=== PATIENT | female | born 1950 | race Caucasian/White ===

== ENCOUNTER 2018-06-08 09:57 | Emergency (ER) | payer OTHER ==
[2018-06-08] MEDS ORDERED: BISACODYL 10 MG RECTAL SUPP ONE (11:01)
[2018-06-08] MEDS ORDERED: FLEET ENEMA ADULT PR ONE ×2 (11:47→12:30)
--- NOTE | 2018-06-08 13:04 | ER ---
Nurse's Notes [facility] Name: Kaitlynn Mosley Age: 67 yrs Sex: Female : 1950 Arrival Date: 06/08/2018 Time: 10:01 Bed 7 Private MD: Diagnosis: Constipation;rectal mass Presentation: 06/08 10:05 Presenting complaint: Patient states: constipation x 4 days. No relief with OTC meds. sv Transition of care: patient was not received from another setting of care. Onset of symptoms was June 04, 2018. Care prior to arrival: None. 10:05 Method Of Arrival: Ambulatory sv 10:05 Acuity: PRIYA 4 sv 13:16 Risk Assessment: Do you want to hurt yourself or someone else? Patient reports no bp desire to harm self or others. Initial Sepsis Screen: Does the patient meet any 2 criteria? No. Patient's initial sepsis screen is negative. Does the patient have a suspected source of infection? No. Patient's initial sepsis screen is negative. Triage Assessment: 10:10 General: Appears distressed, uncomfortable, obese, Behavior is cooperative, appropriate bp for age, anxious. Pain: Complains of pain in abdomen. GI: Abdomen is obese, Bowel sounds diminished in abdomen diffusely Abdomen is tender to palpation X 4 quads. Historical: - Allergies: 10:06 No Known Allergies; sv - PMHx: 10:06 COPD; Hypertension; sv - PSHx: 10:06 Hysterectomy; Appendectomy; sv - Immunization history:: Flu vaccine is up to date. - Social history:: Smoking status: Patient/guardian denies using tobacco. - Ebola Screening: : No symptoms or risks identified at this time. Screenin:11 Abuse screen: Denies threats or abuse. Denies injuries from another. Nutritional bp screening: No deficits noted. Tuberculosis screening: No symptoms or risk factors identified. Fall Risk None identified. Assessment: 10:10 General: Appears distressed, uncomfortable, obese, Behavior is cooperative, appropriate bp for age, anxious. Pain: Complains of pain in abdomen. Neuro: Level of Consciousness is awake, alert, obeys commands, Oriented to person, place, time, situation, Appropriate for age. Cardiovascular: No deficits noted. Respiratory: Airway is patent Respiratory effort is even, unlabored, Respiratory pattern is regular, symmetrical. GI: Reports constipation. : No signs and/or symptoms were reported regarding the genitourinary system. EENT: No deficits noted. Derm: No deficits noted. Musculoskeletal: Circulation, motion, and sensation intact. Range of motion: intact in all extremities. 12:12 Reassessment: NO RELIEF OF S/S DESPITE MX ATTEMPTS IN RESTROOM BY MD BUTCH NOTIFIED. bp Vital Signs: 10:06 BP 163 / 85; Pulse 77; Resp 22; Temp 96.9; Pulse Ox 96% ; Height 5 ft. 8 in. (172.72 sv cm); Pain 10/10; 13:00 BP 157 / 79; Pulse 75; Resp 18; Pulse Ox 96% ; bp ED Course: 10:01 Patient arrived in ED. mr 10:05 Abdi Cameron, KAYE is Primary Nurse. bp 10:05 Triage completed. sv 10:06 Alexi Blanco MD is Attending Physician. gs 10:06 Arm band placed on. sv 10:11 Patient has correct armband on for positive identification. Bed in low position. Call bp light in reach. Side rails up X2. Adult w/ patient. 13:02 Maximus Hernandez MD is Referral Physician. gs 13:15 No provider procedures requiring assistance completed. Patient did not have IV access bp during this emergency room visit. Administered Medications: 10:50 Drug: Dulcolax Suppository 10 mg Route: SC; bp 12:05 Follow up: Response: No change in condition bp 13:14 Follow up: Response: No adverse reaction bp 12:04 Drug: Fleet Enema 133 ml Route: SC; bp 12:05 Follow up: Response: No change in condition bp 13:13 Follow up: Response: No adverse reaction bp Outcome: 13:03 Discharge ordered by . gs 13:16 Discharged to home ambulatory, with family. bp 13:16 Condition: stable 13:16 Discharge instructions given to patient, Instructed on discharge instructions, follow up and referral plans. medication usage, Demonstrated understanding of instructions, follow-up care, medications, Prescriptions given X 2. 13:17 Patient left the ED. bp Signatures: Dasia Franks RN RN sv Bee Solis mr Alexi Blanco MD MD Abdi Cameron RN RN bp
--- NOTE | 2018-06-08 13:04 | EDPHYS ---
Physician Documentation [facility] Name: Kaitlynn Mosley Age: 67 yrs Sex: Female : 1950 Arrival Date: 06/08/2018 Time: 10:01 Bed 7 Private MD: ED Physician Alexi Blanco HPI: 06/08 12:47 This 67 yrs old Female presents to ER via Ambulatory with complaints of gs Constipation. 12:47 Onset: The symptoms/episode began/occurred 1 week(s) ago. Associated signs and gs symptoms: Pertinent negatives: blood in stools. The symptoms are described as crampy. Modifying factors: The symptoms are alleviated by nothing. Severity of pain: At its worst the pain was moderate in the emergency department the pain is unchanged. Historical: - Allergies: : No Known Allergies; sv - PMHx: 10:06 COPD; Hypertension; sv - PSHx: 10:06 Hysterectomy; Appendectomy; sv - Immunization history:: Flu vaccine is up to date. - Social history:: Smoking status: Patient/guardian denies using tobacco. - Ebola Screening: : No symptoms or risks identified at this time. ROS: 12:47 All other systems are negative. gs Exam: 12:47 Head/Face: Normocephalic, atraumatic. Eyes: Pupils equal round and reactive to light, gs extra-ocular motions intact. Lids and lashes normal. Conjunctiva and sclera are non-icteric and not injected. Cornea within normal limits. Periorbital areas with no swelling, redness, or edema. ENT: Nares patent. No nasal discharge, no septal abnormalities noted. Tympanic membranes are normal and external auditory canals are clear. Oropharynx with no redness, swelling, or masses, exudates, or evidence of obstruction, uvula midline. Mucous membranes moist. Neck: Trachea midline, no thyromegaly or masses palpated, and no cervical lymphadenopathy. Supple, full range of motion without nuchal rigidity, or vertebral point tenderness. No Meningismus. Chest/axilla: Normal chest wall appearance and motion. Nontender with no deformity. No lesions are appreciated. Cardiovascular: Regular rate and rhythm with a normal S1 and S2. No gallops, murmurs, or rubs. Normal PMI, no JVD. No pulse deficits. Respiratory: Lungs have equal breath sounds bilaterally, clear to auscultation and percussion. No rales, rhonchi or wheezes noted. No increased work of breathing, no retractions or nasal flaring. Back: No spinal tenderness. No costovertebral tenderness. Full range of motion. Skin: Warm, dry with normal turgor. Normal color with no rashes, no lesions, and no evidence of cellulitis. MS/ Extremity: Pulses equal, no cyanosis. Neurovascular intact. Full, normal range of motion. Neuro: Awake and alert, GCS 15, oriented to person, place, time, and situation. Cranial nerves II-XII grossly intact. Motor strength 5/5 in all extremities. Sensory grossly intact. Cerebellar exam normal. Normal gait. 12:47 Constitutional: The patient appears alert, awake. 12:47 Abdomen/GI: Palpation: abdomen is soft and non-tender, in all quadrants, Rectal exam: fecal impaction, that is moderate, feel mass tip of finger will , give enema dulcolax. Vital Signs: 10:06 BP 163 / 85; Pulse 77; Resp 22; Temp 96.9; Pulse Ox 96% ; Height 5 ft. 8 in. (172.72 sv cm); Pain 10/10; 13:00 BP 157 / 79; Pulse 75; Resp 18; Pulse Ox 96% ; bp MDM: 10:17 Patient medically screened. gs 12:47 Data reviewed: vital signs, nurses notes. ED course: reexamined after pt had bm still gs feel mass retracts up and down with valsalva concern for sigmoid mass. Administered Medications: 10:50 Drug: Dulcolax Suppository 10 mg Route: WI; bp 12:05 Follow up: Response: No change in condition bp 13:14 Follow up: Response: No adverse reaction bp 12:04 Drug: Fleet Enema 133 ml Route: WI; bp 12:05 Follow up: Response: No change in condition bp 13:13 Follow up: Response: No adverse reaction bp Disposition: 06/08/18 13:03 Discharged to Home. Impression: Constipation, rectal mass. - Condition is Stable. - Discharge Instructions: Constipation, Adult, Constipation, Adult, [id number], Colon Mass, Adult. - Prescriptions for Dulcolax 10 mg Rectal Suppository - insert 1 suppository by RECTAL route every 6 hours As needed; 10 suppository. Miralax 17 gram/dose Oral - take 1 packet by ORAL route once daily dilute powder in 8 ounces of water or juice; 1 bottle. - Medication Reconciliation Form, Thank You Letter, Antibiotic Education, Prescription Opioid Use form. - Follow up: Maximus Hernandez MD; When: 2 - 3 days; Reason: Re-evaluation by your physician. Signatures: Dasia Franks RN RN Alexi Blanco MD MD Abdi Cameron RN RN bp Corrections: (The following items were deleted from the chart) 13:17 13:03 06/08/2018 13:03 Discharged to Home. Impression: Constipation; rectal mass. bp Condition is Stable. Forms are Medication Reconciliation Form, Thank You Letter, Antibiotic Education, Prescription Opioid Use. Follow up: Maximus Hernandez; When: 2 - 3 days; Reason: Re-evaluation by your physician. gs
== END 2018-06-08 13:17 | disposition home or self-care (01) ==
LOC: ER 09:57
DX: K62.9 Disease of anus and rectum, unspecified (principal)
CPT/HCPCS: 99283

== ENCOUNTER 2018-06-09 14:39 | Observation (INO) | payer OTHER ==
--- NOTE | 2018-06-09 15:50 | RAD REPORT ---
EXAM DESCRIPTION: CT - Stone Protocol - 06/09/2018 3:29 pm CLINICAL HISTORY: Abdominal pain COMPARISON: CT imaging September 2015 TECHNIQUE: Axial 5 mm thick images were obtained without oral or IV contrast. The [id number] span s the entirety of the system partially obscuring uppermost abdomen and lung bases. All CT scans are performed using dose optimization technique as appropriate and may include automated exposure control or mA/KV adjustment according to patient size. FINDINGS: No hydronephrosis is present and no obstructing ureteral calculi. No suspicious renal mass es. Isodense masses and pyelonephritis are not excluded on a stone protocol CT scan. No urinary bladd er suspicious finding. No uterine or ovarian abnormality. No right adrenal abnormality. A 3.6 centimeter rounded left adrenal mass is present with a less than 2 Hounsfield unit attenuation value. 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 Imaged portions of the liver, spleen and pancreas show no suspicious findings on non-contrast imaging . Midline left lobe lobulated cyst or low-density mass is present minimally increased in size from 20 16. This is not regarded with suspicion. Small cystic lesion near the falciform ligament without hager ge from 2016. No gastric dilatation or wall thickening. No small bowel abnormality. The patient has a mild to moder ate amount of stool in the distal rectum. Otherwise there is little stool in the colon. Sigmoid diver ticulosis is minimal. No acute GI process identifiable. No hernia, mass or bulky lymphadenopathy noted. No free air, free fluid or inflammatory stranding. Lower lumbar disc and bony degenerative changes are present. This is most notable at L5-S1. Old traum a changes are noted to the right hemipelvis near the hip joint. IMPRESSION: Mild to moderate stool volume in the distal rectum with overall stool volume in the colo n minimal. No acute GI process identifiable. No acute or WEBMETHOD[employer] ARCHITECT process. Isodense masses and pyelonephritis are not excluded on stone protocol pacheco hnique.
[2018-06-09] MEDS ORDERED: BISACODYL 10 MG RECTAL SUPP ONE ×2 (17:21→17:51)
[2018-06-09] MEDS ORDERED: LACTULOSE 20 GM/30 ML UCUP ONE (17:22)
[2018-06-09] MEDS ORDERED: NA CHLORIDE 0.9% 1,000 ML ONE (17:22)
[2018-06-09 17:54] LABS: Absolute Lymphocytes (CBC) 2.6 K/uL (0.7-4.9); Absolute Monocytes 1.6 K/uL (0.1-1.3); Absolute Neutrophil 11.8 K/uL (1.8-8.0); Basophils % 0.5 % (0-1.3); Eosinophils % 1.4 % (0-4.4); Hematocrit 47.6 % (36.0-45.0); MCH 27.7 pg (27.0-35.0); MCV 85.7 fL (80-100); MPV 10.1 fL (7.6-11.3); Monocytes % 9.9 % (3.3-12.3); RBC Red Blood Cell Count 5.56 M/uL (3.86-4.86)
--- NOTE | 2018-06-09 17:55 | ER ---
Nurse's Notes [facility] Name: Kaitlynn Mosley Age: 67 yrs Sex: Female : 1950 Arrival Date: 06/09/2018 Time: 14:41 Bed 7 Private MD: Diagnosis: Constipation;Abdominal tenderness;Obesity, unspecified Presentation: 06/09 15:41 Presenting complaint: Patient states: " I was seen here yesterday and they said I had a ph blockage, I went to Dr Hernandez today and he sent me back over here for an enema." Pt c/o pain in rectum, nausea and headache. Transition of care: patient was not received from another setting of care. Onset of symptoms was June 09, 2018. Risk Assessment: Do you want to hurt yourself or someone else? Patient reports no desire to harm self or others. Care prior to arrival: None. 15:41 Method Of Arrival: Wheelchair ph 15:41 Acuity: PRIYA 3 ph 19:16 Initial Sepsis Screen: Does the patient meet any 2 criteria? No. Patient's initial ea sepsis screen is negative. Does the patient have a suspected source of infection? No. Patient's initial sepsis screen is negative. Triage Assessment: 18:50 Pain: Complains of pain in suprapubic area. iw Historical: - Allergies: 15:45 No Known Allergies; ph - PMHx: 15:45 COPD; Hypertension; ph - PSHx: 15:45 Hysterectomy; Appendectomy; Tonsillectomy; ph - Immunization history:: Adult Immunizations up to date. - Social history:: Smoking status: Patient/guardian denies using tobacco. - Family history:: not pertinent. - Ebola Screening: : No symptoms or risks identified at this time. Screenin:03 Abuse screen: Denies threats or abuse. Denies injuries from another. Nutritional iw screening: No deficits noted. Tuberculosis screening: No symptoms or risk factors identified. Fall Risk IV access (20 points). Assessment: 19:02 Reassessment: pt sitting on bedside commode, attempting to have BM, unsuccessful, pt iw c/o nausea, pt medicated with zofran and fentanyl, IV antibiotics infusing. 19:13 General: Appears uncomfortable, Behavior is calm, cooperative, appropriate for age. ea Neuro: Level of Consciousness is awake, alert, obeys commands, Oriented to person, place, time, situation. Cardiovascular: Patient's skin is warm and dry. Respiratory: Airway is patent Respiratory effort is even, unlabored, Respiratory pattern is regular, symmetrical. GI: Abdomen is distended, Bowel sounds present X 4 quads. Abd is soft and non tender X 4 quads. Derm: Skin is pink, warm \\T\\ dry. 20:17 Reassessment: Patient and/or family updated on plan of care and expected duration. Pain ea level reassessed. Patient is alert, oriented x 3, equal unlabored respirations, skin warm/dry/pink. Report called to Heaven RESTREPO on second floor. Vital Signs: 15:44 BP 175 / 104; Pulse 85; Resp 20; Temp 97.8; Pulse Ox 96% on R/A; ph 16:33 BP 162 / 103; Pulse 76; Resp 20; Temp 97.4; Pulse Ox 96% on R/A; ph 19:00 BP 119 / 64; Pulse 87; Resp 18; Pulse Ox 95% on R/A; Pain 8/10; iw 20:29 BP 125 / 73; Pulse 80; Resp 18; Temp 97.6(TE); Pulse Ox 97% on R/A; ea ED Course: 14:41 Patient arrived in ED. as 15:30 CT Stone Protocol In Process Unspecified. EDMS 15:44 Triage completed. ph 15:45 Arm band placed on. ph 16:55 Miko Pradhan MD is Attending Physician. norma 17:09 Natalia Ross, RN is Primary Nurse. iw 17:19 EKG done, by diamond powder technician. reviewed by Miko Pradhan MD. sm3 17:36 Initial lab(s) drawn, by oh, sent to lab. Inserted saline lock: 24 gauge in right iw wrist, using aseptic technique. Blood collected. 17:53 Karena Badillo MD is Hospitalizing Provider. norma 18:07 XRAY Chest (1 view) In Process Unspecified. EDMS 19:15 No provider procedures requiring assistance completed. Patient admitted, IV remains in ea place. 19:16 Patient has correct armband on for positive identification. Bed in low position. Call ea light in reach. Side rails up X 1. Administered Medications: Discontinued: NS 0.9% 1000 ml IV at 1 bolus Per protocol; 1000 mL bolus 17:34 Drug: NS 0.9% 1000 ml Route: IV; Rate: 1 bolus; Site: right wrist; iw 17:52 Drug: Lactulose 30 grams Volume: 45 ml; Route: PO; iw 18:30 Follow up: Response: No adverse reaction iw 17:52 Drug: Dulcolax Suppository 10 mg Route: NJ; iw 19:28 Follow up: Response: No adverse reaction iw 18:59 Drug: Cipro 400 mg Volume: 200 ml; Route: IVPB; Infused Over: 60 mins; Site: right iw wrist; 20:14 Follow up: Response: No adverse reaction; IV Status: Completed infusion ea 18:59 Drug: Flagyl 500 mg Volume: 100 ml; Route: IVPB; Rate: 200 ml/hr; Infused Over: 30 iw mins; Site: right hand; 20:14 Follow up: Response: No adverse reaction; IV Status: Completed infusion ea 19:00 Drug: fentaNYL (PF) 25 mcg Route: IVP; Site: right wrist; iw 19:29 Follow up: Response: No adverse reaction; Pain is decreased iw 19:00 Drug: Zofran 4 mg Route: IVP; Site: right wrist; iw 19:29 Follow up: Response: No adverse reaction iw Outcome: 17:54 Decision to Hospitalize by Provider. norma 19:17 Instructed on the need for admit. gracia 20:18 Admitted to Med/surg accompanied by tech, room 220, with chart, Report called to Heaven fagan RN 20:28 Condition: stable ea 20:30 Patient left the ED. gracia Signatures: Dispatcher [employer] Miko Mcintyre MD MD cha Martinez, Amelia as Williams, Irene, RN RN iw Hall, Patricia, RN RN Heaven Reese RN RN ea Montes, Shakira 3
--- NOTE | 2018-06-09 17:55 | EDPHYS ---
Physician Documentation [facility] Name: Kaitlynn Mosley Age: 67 yrs Sex: Female : 1950 Arrival Date: 06/09/2018 Time: 14:41 Bed 7 Private MD: ED Physician Miko Pradhan HPI: 06/09 17:46 This 67 yrs old Female presents to ER via Wheelchair with complaints of norma Constipation. 17:46 The patient presents with abdominal pain in the lower abdomen, rectal. Onset: The norma symptoms/episode began/occurred 3 day(s) ago. The patient presents to the emergency department with diarrhea, abdominal pain, of the suprapubic area. Historical: - Allergies: 15:45 No Known Allergies; ph - PMHx: 15:45 COPD; Hypertension; ph - PSHx: 15:45 Hysterectomy; Appendectomy; Tonsillectomy; ph - Immunization history:: Adult Immunizations up to date. - Social history:: Smoking status: Patient/guardian denies using tobacco. - Family history:: not pertinent. - Ebola Screening: : No symptoms or risks identified at this time. ROS: 17:46 Constitutional: Negative for fever, chills, and weight loss, Eyes: Negative for injury, norma pain, redness, and discharge, ENT: Negative for injury, pain, and discharge, Neck: Negative for injury, pain, and swelling, Cardiovascular: Negative for chest pain, palpitations, and edema, Respiratory: Negative for shortness of breath, cough, wheezing, and pleuritic chest pain, Back: Negative for injury and pain, : Negative for injury, bleeding, discharge, and swelling, MS/Extremity: Negative for injury and deformity, Skin: Negative for injury, rash, and discoloration, Neuro: Negative for headache, weakness, numbness, tingling, and seizure, Psych: Negative for depression, anxiety, suicide ideation, homicidal ideation, and hallucinations, Allergy/Immunology: Negative for hives, rash, and allergies, Endocrine: Negative for neck swelling, polydipsia, polyuria, polyphagia, and marked weight changes, Hematologic/Lymphatic: Negative for swollen nodes, abnormal bleeding, and unusual bruising. 17:46 Abdomen/GI: Positive for abdominal pain, rectal pain. Exam: 17:46 Constitutional: This is a well developed, well nourished patient who is awake, alert, norma and in no acute distress. Head/Face: Normocephalic, atraumatic. Eyes: Pupils equal round and reactive to light, extra-ocular motions intact. Lids and lashes normal. Conjunctiva and sclera are non-icteric and not injected. Cornea within normal limits. Periorbital areas with no swelling, redness, or edema. ENT: Nares patent. No nasal discharge, no septal abnormalities noted. Tympanic membranes are normal and external auditory canals are clear. Oropharynx with no redness, swelling, or masses, exudates, or evidence of obstruction, uvula midline. Mucous membranes moist. Neck: Trachea midline, no thyromegaly or masses palpated, and no cervical lymphadenopathy. Supple, full range of motion without nuchal rigidity, or vertebral point tenderness. No Meningismus. Chest/axilla: Normal chest wall appearance and motion. Nontender with no deformity. No lesions are appreciated. Cardiovascular: Regular rate and rhythm with a normal S1 and S2. No gallops, murmurs, or rubs. Normal PMI, no JVD. No pulse deficits. Respiratory: Lungs have equal breath sounds bilaterally, clear to auscultation and percussion. No rales, rhonchi or wheezes noted. No increased work of breathing, no retractions or nasal flaring. Back: No spinal tenderness. No costovertebral tenderness. Full range of motion. Female : Normal external genitalia. Skin: Warm, dry with normal turgor. Normal color with no rashes, no lesions, and no evidence of cellulitis. MS/ Extremity: Pulses equal, no cyanosis. Neurovascular intact. Full, normal range of motion. Neuro: Awake and alert, GCS 15, oriented to person, place, time, and situation. Cranial nerves II-XII grossly intact. Motor strength 5/5 in all extremities. Sensory grossly intact. Cerebellar exam normal. Normal gait. Psych: Awake, alert, with orientation to person, place and time. Behavior, mood, and affect are within normal limits. 17:46 Abdomen/GI: Inspection: distension, Bowel sounds: normal, Palpation: mild abdominal tenderness, in the suprapubic area, right lower quadrant and left lower quadrant, Rectal exam: rectal tone normal, Stool: normal, guaiac negative, hemorrhoid(s), are not appreciated, mass, is not appreciated, swelling, is not appreciated, tenderness, that is mild. Vital Signs: 15:44 BP 175 / 104; Pulse 85; Resp 20; Temp 97.8; Pulse Ox 96% on R/A; ph 16:33 BP 162 / 103; Pulse 76; Resp 20; Temp 97.4; Pulse Ox 96% on R/A; ph 19:00 BP 119 / 64; Pulse 87; Resp 18; Pulse Ox 95% on R/A; Pain 8/10; iw 20:29 BP 125 / 73; Pulse 80; Resp 18; Temp 97.6(TE); Pulse Ox 97% on R/A; ea MDM: 16:55 Patient medically screened. [facility] 17:50 Data reviewed: vital signs, nurses notes, lab test result(s), EKG, radiologic studies, [facility] CT scan, plain films. 06/09 17:04 Order name: Basic Metabolic Panel; Complete Time: 19:37 [facility] 06/09 17:04 Order name: CBC with Diff; Complete Time: 19:37 [facility] 06/09 17:04 Order name: LFT's; Complete Time: 19:37 [facility] 06/09 17:04 Order name: Magnesium; Complete Time: 19:37 [facility] 06/09 17:04 Order name: NT PRO-BNP; Complete Time: 19:37 [facility] 06/09 17:04 Order name: PT-INR; Complete Time: 19:37 [facility] 06/09 15:14 Order name: CT Stone Protocol; Complete Time: 16:22 snw 06/09 17:04 Order name: Troponin (emerg Dept Use Only); Complete Time: 19:37 [facility] 06/09 17:04 Order name: XRAY Chest (1 view) [facility] 06/09 17:04 Order name: Lipase; Complete Time: 19:37 [facility] 06/09 17:04 Order name: Urine Culture [facility] 06/09 19:22 Order name: Urine Dipstick--Ancillary (enter results) 06/09 19:34 Order name: Urine Dipstick-Ancillary; Complete Time: 19:37 EDMS 06/09 17:04 Order name: EKG; Complete Time: 17:05 [facility] 06/09 17:04 Order name: Cardiac monitoring; Complete Time: 20:30 [facility] 06/09 17:04 Order name: EKG - Nurse/Tech; Complete Time: 20:30 [facility] 06/09 17:04 Order name: IV Saline Lock; Complete Time: 19:28 [facility] 06/09 17:04 Order name: Labs collected and sent; Complete Time: 19: [facility] 06/09 17:04 Order name: O2 Per Protocol; Complete Time: 19:28 [facility] 06/09 17:04 Order name: O2 Sat Monitoring; Complete Time: 19:29 [facility] 06/09 17:04 Order name: Urine Dipstick-Ancillary (obtain specimen); Complete Time: 19:15 [facility] 06/09 18:00 Order name: CONS Physician Consult EDMS Administered Medications: Discontinued: NS 0.9% 1000 ml IV at 1 bolus Per protocol; 1000 mL bolus 17:34 Drug: NS 0.9% 1000 ml Route: IV; Rate: 1 bolus; Site: right wrist; iw 17:52 Drug: Lactulose 30 grams Volume: 45 ml; Route: PO; iw 18:30 Follow up: Response: No adverse reaction iw 17:52 Drug: Dulcolax Suppository 10 mg Route: OH; iw 19:28 Follow up: Response: No adverse reaction iw 18:59 Drug: Cipro 400 mg Volume: 200 ml; Route: IVPB; Infused Over: 60 mins; Site: right iw wrist; 20:14 Follow up: Response: No adverse reaction; IV Status: Completed infusion ea 18:59 Drug: Flagyl 500 mg Volume: 100 ml; Route: IVPB; Rate: 200 ml/hr; Infused Over: 30 iw mins; Site: right hand; 20:14 Follow up: Response: No adverse reaction; IV Status: Completed infusion ea 19:00 Drug: fentaNYL (PF) 25 mcg Route: IVP; Site: right wrist; iw 19:29 Follow up: Response: No adverse reaction; Pain is decreased iw 19:00 Drug: Zofran 4 mg Route: IVP; Site: right wrist; iw 19:29 Follow up: Response: No adverse reaction Disposition: 06/09/18 17:54 Hospitalization ordered by Karena Badillo for Observation. Preliminary diagnosis are Constipation, Abdominal tenderness, Obesity, unspecified. - Bed requested for Telemetry/MedSurg (observation). - Status is Observation. ea - Condition is Stable. - Problem is new. - Symptoms have improved. UTI on Admission? No Signatures: Dispatcher [employer] EDMS Fe Robles Corey, MD MD cha Therrien, Shelly, HAIRSPRING STAKER-C HAIRSPRING STAKER-Csnw Natalia Ross, RN Magnolia Izaguirre, Heaven Gu RN, ph, RN RN ea Corrections: (The following items were deleted from the chart) 18:56 17:54 Hospitalization Ordered by Karena Badillo MD for Observation. Preliminary diagnosis bd is Constipation; Abdominal tenderness; Obesity, unspecified. Bed requested for Telemetry/MedSurg (observation). Status is Observation. Condition is Stable. Problem is new. Symptoms have improved. UTI on Admission? No. norma 20:30 18:56 06/09/2018 17:54 Hospitalization Ordered by Karena Badillo MD for Observation. gracia Preliminary diagnosis is Constipation; Abdominal tenderness; Obesity, unspecified. Bed requested for Telemetry/MedSurg (observation). Status is Observation. Condition is Stable. Problem is new. Symptoms have improved. UTI on Admission? No. bd
[2018-06-09 18:11] LABS: Protime INR 1.05
[2018-06-09 18:29] LABS: ALT/SGPT 17 U/L (12-78); AST/SGOT 21 U/L (15-37); Albumin 3.8 g/dL (3.4-5.0); Alkaline Phosphatase 76 U/L (45-117); BUN Blood Urea Nitrogen 10 mg/dL (7-18); Bicarbonate 24 mmol/L (21-32); Bilirubin Direct 0.1 mg/dL (0-0.2); Bilirubin Total 0.6 mg/dL (0.2-1.0); Glucose Level 99 mg/dL (74-106); Lipase 130 U/L (73-393); Magnesium 2.5 mg/dL (1.8-2.4); NT PRO-BNP 649 pg/mL (<125); Potassium 3.9 mmol/L (3.5-5.1); Sodium Level 142 mmol/L (136-145); Troponin (Emerg Dept Use Only) < 0.02 ng/mL (0.0-0.045)
[2018-06-09] MEDS ORDERED: FENTANYL CITR 100 MCG/2 ML ONE (18:53)
[2018-06-09] MEDS ORDERED: NA CHLORIDE 0.9% 500 ML ONE (18:53)
[2018-06-09] MEDS ORDERED: ONDANSETRON 4 MG/2 ML VIAL ONE (18:53)
[2018-06-09] MEDS ORDERED: METRONIDAZOLE 500mg IVPB 500 MG/100 ML BAG IV ONE (18:53)
[2018-06-09] MEDS ORDERED: CIPROFLOXACIN 400mg IV 400 MG/200 ML BAG IV ONE (18:53)
[2018-06-09 19:34] LABS: Urine Blood 1+ (NEG); Urine Glucose NEGATIVE (NEG); Urine Protein NEGATIVE (NEG); Urine Specific Gravity 1.025 (1.005-1.030)
--- NOTE | 2018-06-09 20:04 | RAD REPORT ---
EXAM DESCRIPTION: RAD - Chest Single View - 06/09/2018 6:07 pm CLINICAL HISTORY: Cough and congestion COMPARISON: July 2015 chest film, lung base images from August 09 CT abdomen TECHNIQUE: AP portable chest image was obtained 1734 hours . FINDINGS: No acute infiltrate. Stranding in the left base is probably atelectasis. No failure or vol ume overload. Heart and vasculature are normal. No measurable pleural effusion and no pneumothorax. N o acute bony abnormality seen. No acute aortic findings suspected. IMPRESSION: No acute cardiopulmonary process.
[2018-06-09] MEDS ORDERED: BISACODYL E.C. 5 MG TAB PO PRN (21:31)
[2018-06-09] MEDS ORDERED: LACTULOSE 20 GM/30 ML UCUP PO PRN (21:31)
[2018-06-09] MEDS ORDERED: ONDANSETRON 4 MG/2 ML VIAL IV PRN (21:31)
[2018-06-09] MEDS ORDERED: ACETAMINOPHEN 500 MG TAB PO PRN (21:31)
[2018-06-09] MEDS ORDERED: HYDROCODONE/APAP 10/325 TAB PO PRN (21:48)
[2018-06-09] MEDS: RANITIDINE 150 MG TABLET PO SCH (23:00)
[2018-06-09] MEDS ORDERED: METOPROLOL TARTRATE 5 MG/5 ML INJ IV STA (23:03)
[2018-06-10 06:01] LABS: Absolute Lymphocytes (CBC) 2.9 K/uL (0.7-4.9); Absolute Monocytes 1.5 K/uL (0.1-1.3); Basophils % 0.6 % (0-1.3); Eosinophils % 1.9 % (0-4.4); Lymphocytes % 21.2 % (15.3-44.8); MCH 28.1 pg (27.0-35.0); MCV 86.5 fL (80-100); MPV 9.9 fL (7.6-11.3); Monocytes % 11.1 % (3.3-12.3); RBC Red Blood Cell Count 5.09 M/uL (3.86-4.86)
[2018-06-10 06:23] LABS: Albumin 3.4 g/dL (3.4-5.0); Bilirubin Total 0.7 mg/dL (0.2-1.0); Potassium 3.8 mmol/L (3.5-5.1); Protein, Total 6.9 g/dL (6.4-8.2)
[2018-06-10 06:51] LABS: Magnesium 2.3 mg/dL (1.8-2.4); Phosphorus 2.6 mg/dL (2.5-4.9)
--- NOTE | 2018-06-10 07:00 | EKG ---
Test Date: 2018-06-09 Test Time: 17:13:20 Silo Painter: ANTONIO MEASUREMENT RESULTS: Intervals: Rate: 77 OK: 138 QRSD: 88 QT: 400 QTc: 452 [employer]: P: 67 OK: 138 QRS: 64 T: 64 INTERPRETIVE STATEMENTS: Sinus rhythm with premature supraventricular complexes Nonspecific ST abnormality Abnormal ECG Compared to ECG 08/06/2015 06:05:15 Atrial premature complex(es) now present ST (T wave) deviation now present Sinus arrhythmia no longer present Electronically Signed On 06-10-18 06:59:55 CDT by Eleno Bob
[2018-06-10] MEDS ORDERED: PNEUMOCOCCAL VACCINE 0.5 ML IMVAC ONE (08:00)
--- NOTE | 2018-06-10 08:50 | P.HP ---
Certification for Inpatient Patient admitted to: Observation With expected LOS: <2 Midnights Patient will require the following post-hospital care: None Practitioner: I am a practitioner with admitting privileges, knowledge of patient current condition, hospital course, and medical plan of care. Services: Services provided to patient in accordance with Admission requirements found in Title 42 Section 412.3 of the Code of Federal Regulations Patient History Date of Service: 06/09/18 Reason for admission: Constipation and impaction History of Present Illness: Patient is a 67-year-old female who is been suffering from severe abdominal pain for the last few days. She states her last bowel movement was over 5 days ago. She has been having diarrhea. She has felt a large stool will near the rectum. It appears to be very painful. Patient was given a suppository in the emergency room and apparently patient has had a small bowel movement. Patient feels like she will have to go again. Spoke to the nurse regarding disimpaction. As long as patient is agreeable will go ahead and disimpact her this evening as well. Allergies NKDA Allergy (Uncoded 08/07/15 14:12) Unknown Home Medications: Lisinopril [Prinivil*] 10 mg PO BID 08/05/15 Ranitidine [Zantac*] 1 tab PO BID 08/05/15 Acetaminophen [Tylenol Extra Strength] 1 tab PO PRN 06/09/18 - Past Medical/Surgical History Has patient received pneumonia vaccine in the past: No Diabetic: No -: hypertension -: GERD -: hysterectomy -: appendectomy - Family History Father Medical History: Heart disease, Cancer Mother Medical History: Hypertension Brother Medical History: Heart disease - Social History Smoking Status: Former smoker Alcohol use: No CD- Drugs: No Caffeine use: Yes Place of Residence: Home Review of Systems 10-point ROS is otherwise unremarkable Physical Examination - Vital Signs Temperature: 96.9 F Blood Pressure: 144/72 Pulse: 64 Respirations: 18 Pulse Ox (%): 94 - Physical Exam General: Alert, In no apparent distress, Oriented x3 HEENT: Atraumatic, PERRLA, Mucous membr. moist/pink, EOMI, Sclerae nonicteric Neck: Supple, 2+ carotid pulse no bruit, No LAD, Without JVD or thyroid abnormality Respiratory: Clear to auscultation bilaterally, Normal air movement Cardiovascular: Regular rate/rhythm, Normal S1 S2, No murmurs Gastrointestinal: Normal bowel sounds, Soft and benign, No rebound, No guarding , Other, Distended, Tenderness Musculoskeletal: No tenderness Integumentary: No rashes Neurological: Normal gait, Normal speech, Normal strength at 5/5 x4 extr, Normal tone, Sensation intact, Cranial nerves 3-12 intact, Normal affect Lymphatics: No axilla or inguinal lymphadenopathy - Studies Laboratory Data (last 24 hrs) 06/09/18 17:30: PT 12.4, INR 1.05 06/09/18 17:30: WBC 16.3 H, Hgb 15.4 H, Hct 47.6 H, Plt Count 288 06/09/18 17:30: Sodium 142, Potassium 3.9, BUN 10, Creatinine 1.10, Glucose 99, Magnesium 2.5 H, Total Bilirubin 0.6, AST 21, ALT 17, Alkaline Phosphatase 76, Lipase 130 Assessment & Plan - Problems (Diagnosis) (1) Constipation Current Visit: Yes Status: Acute (2) Fecal impaction Current Visit: Yes Status: Acute (3) Abdominal pain Current Visit: Yes Status: Acute (4) Hypertension Current Visit: Yes Status: Acute (5) COPD exacerbation Onset Date: 08/08/15 Current Visit: No Status: Acute (6) Dyspnea Onset Date: 08/08/15 Current Visit: No Status: Acute (7) Tobacco abuse Onset Date: 08/08/15 Current Visit: No Status: Acute - Plan PLAN: 1. Continue with laxative 2. Soap nikki enema x 2 3. GI consult 4. Stool softener 5. Patient will need a bowel regimen going forward 6. BP and BS control 7. GI/DVT prophylaxis Discharge Plan: Home Plan to discharge in: 48 Hours - Advance Directives Does patient have a Living Will: No Does patient have a Durable POA for Healthcare: No - Code Status/Comfort Care Code Status Assessed: Yes Code Status: Full Code Critical Care: No Time Spent Managing PTS Care (In Minutes): 50
[2018-06-10] MEDS: HYDROCORTISONE 2.5% RECT CR PR SCH ×2 (09:03→20:53)
--- NOTE | 2018-06-10 15:31 | RAD REPORT ---
EXAM DESCRIPTION: RAD - Colon-Ba Enema-Therapeutic - 06/10/2018 12:09 pm CLINICAL HISTORY: Abdominal pain/constipation COMPARISON: None FINDINGS: Gastrografin enema was requested. Contrast was administered into the rectum. The sigmoid c olon and descending colon were opacified with contrast. The patient complained of pain and wanted the exam to be ended. The remainder the colon was not opaci fied with contrast. Two fluoroscopic spot images obtained. Fluoroscopy time 0.4 minutes IMPRESSION: Incomplete Gastrografin enema
--- NOTE | 2018-06-10 16:04 | P.PN ---
Subjective Date of Service: 06/10/18 Chief Complaint: Constipation and impaction Patient seen and examined at bedside. No family at bedside. Patient states that she was unable to tolerate the Gastrografin enema this morning due to excessive amount of pain. She does state that she is feeling a little bit better than initially when she came in. Denies any abdominal pain, nausea, vomiting, fevers or chills. She is hungry. Review of Systems As noted above Physical Examination - Vital Signs Temperature: 97.1 F Blood Pressure: 176/82 Pulse: 69 Respirations: 20 Pulse Ox (%): 94 - Physical Exam General: Alert, In no apparent distress HEENT: Atraumatic, PERRLA, EOMI Neck: Supple, JVD not distended Respiratory: Clear to auscultation bilaterally, Normal air movement Cardiovascular: Regular rate/rhythm, Normal S1 S2 Gastrointestinal: Normal bowel sounds, No tenderness Musculoskeletal: No tenderness Integumentary: No rashes Neurological: Normal speech, Normal tone, Normal affect - Studies Laboratory Data (last 24 hrs) 06/09/18 17:30: PT 12.4, INR 1.05 06/09/18 17:30: WBC 16.3 H, Hgb 15.4 H, Hct 47.6 H, Plt Count 288 06/09/18 17:30: Sodium 142, Potassium 3.9, BUN 10, Creatinine 1.10, Glucose 99, Magnesium 2.5 H, Total Bilirubin 0.6, AST 21, ALT 17, Alkaline Phosphatase 76, Lipase 130 Medications List Reviewed: Yes Assessment And Plan - Plan - Constipation: Improving Failed Gastrografin enema this morning, due to pain. Continue laxatives and enemas p.r.n. Clear liquids diet, advance as tolerated GI consulted, recommendations appreciated General surgery consulted. - fecal impaction See Plan above - abdominal pain: Resolved - Hypertension: Continue home medications - COPD exacerbation: Stable. Continue medications - tobacco abuse: Cessation education provided. Patient not interested at this time.
[2018-06-10] MEDS: RANITIDINE 150 MG TABLET PO SCH (20:54)
[2018-06-11 05:33] LABS: Absolute Lymphocytes (CBC) 2.4 K/uL (0.7-4.9); Absolute Monocytes 1.3 K/uL (0.1-1.3); Absolute Neutrophil 7.2 K/uL (1.8-8.0); Basophils % 0.9 % (0-1.3); Eosinophils % 3.1 % (0-4.4); Hematocrit 45.4 % (36.0-45.0); Lymphocytes % 21.4 % (15.3-44.8); MCH 28.1 pg (27.0-35.0); MPV 9.8 fL (7.6-11.3); Monocytes % 11.5 % (3.3-12.3); RBC Red Blood Cell Count 5.28 M/uL (3.86-4.86)
[2018-06-11 06:07] LABS: Albumin 3.5 g/dL (3.4-5.0); Bilirubin Total 0.8 mg/dL (0.2-1.0); Potassium 4.2 mmol/L (3.5-5.1); Protein, Total 6.9 g/dL (6.4-8.2)
[2018-06-11] MEDS: HYDROCORTISONE 2.5% RECT CR PR SCH (08:59)
--- NOTE | 2018-06-11 13:39 | P.DS ---
Admission Date: 06/09/18 Discharge Date: 06/11/18 Disposition: ROUTINE DISCHARGE Discharge Condition: GOOD Reason for Admission: Constipation and impaction Consultations: GI, Dr. hernandez Brief History of Present Illness: Patient is a 67-year-old female who is been suffering from severe abdominal pain for the last few days. She states her last bowel movement was over 5 days ago. She has been having diarrhea. She has felt a large stool will near the rectum. It appears to be very painful. Patient was given a suppository in the emergency room and apparently patient has had a small bowel movement. Patient feels like she will have to go again. Spoke to the nurse regarding disimpaction. As long as patient is agreeable will go ahead and disimpact her this evening as well Hospital Course: She was admitted for constipation, fecal impaction. GI was consulted. She was given laxatives and enemas as needed. In she failed her Gastrografin enema because she was having too much pain. Although patient did start having bowel movements afterwards. Her pain resolved and she was able to tolerate a clear liquid diet, advanced to soft without any concerns or complaints. At the time of discharge, P was tolerating a soft diet without any abdominal pain, nausea or vomiting. She had 3 or 4 normal bowel movements. For her hemorrhoids, she was instructed to use her preparation H cream. She was also given information to follow up with Dr. Camarena outpatient for further evaluation/treatment. She otherwise remained stable throughout the hospitalization She was educated on smoking cessation. Vital Signs/Physical Exam: Temp Pulse Resp BP Pulse Ox 97.8 F 77 20 191/99 H 99 06/11/18 08:00 06/11/18 08:00 06/11/18 08:00 06/11/18 08:00 06/11/18 08:00 General: Alert, In no apparent distress HEENT: Atraumatic, PERRLA, EOMI Neck: Supple, JVD not distended Respiratory: Clear to auscultation bilaterally, Normal air movement Cardiovascular: Regular rate/rhythm, Normal S1 S2 Gastrointestinal: Normal bowel sounds, No tenderness Musculoskeletal: No tenderness Integumentary: No rashes Neurological: Normal speech, Normal tone, Normal affect Laboratory Data at Discharge: WBC 11.4 K/uL (4.3-10.9) H D 06/11/18 04:51 Hgb 14.8 g/dL (12.0-15.0) 06/11/18 04:51 Hct 45.4 % (36.0-45.0) H 06/11/18 04:51 Plt Count 249 K/uL (152-406) 06/11/18 04:51 PT 12.4 SECONDS (9.5-12.5) 06/09/18 17:30 INR 1.05 06/09/18 17:30 Sodium 140 mmol/L (136-145) 06/11/18 04:51 Potassium 4.2 mmol/L (3.5-5.1) 06/11/18 04:51 BUN 13 mg/dL (7-18) 06/11/18 04:51 Creatinine 1.10 mg/dL (0.55-1.3) 06/11/18 04:51 Glucose 110 mg/dL (74-106) H 06/11/18 04:51 Phosphorus 2.6 mg/dL (2.5-4.9) 06/10/18 05:38 Magnesium 2.3 mg/dL (1.8-2.4) 06/10/18 05:38 Total Bilirubin 0.8 mg/dL (0.2-1.0) 06/11/18 04:51 AST 24 U/L (15-37) 06/11/18 04:51 ALT 14 U/L (12-78) 06/11/18 04:51 Alkaline Phosphatase 61 U/L (45-117) 06/11/18 04:51 Lipase 130 U/L (73-393) 06/09/18 17:30 Home Medications: Lisinopril [Prinivil*] 10 mg PO BID 08/05/15 Ranitidine [Zantac*] 1 tab PO BID 08/05/15 Acetaminophen [Tylenol Extra Strength] 1 tab PO PRN 06/09/18 Diet: Liquid/soft Activity: Ad crista Followup: Dane Camarena MD [ACTIVE - CAN ADMIT] - 1-2 Weeks (Call for appointment. Call with any concerns.) Maximus Hernandez MD [ASSOCIATE-ACTIVE - CAN ADMIT] - 1-2 Weeks (Call for appointment.) Time spent managing pt's care (in minutes): 45
--- NOTE | 2018-06-11 14:43 | CON ---
Date of Consultation: 06/10/2018 Brief History Of Present Illness: The patient is a 67-year-old female, who has been having abdominal pain for several days prior to her admission. She says her last bowel was over 5 days ago . She usually has a bowel movement per day. She had been noting decreased oral intake of liquids an d having intermittent diarrhea. She felt a large hard firm stool in her rectum, which she has had on several occasions before and usually she says she is able to digitally remove these. However, on th is particular occasion, she was unable to do so as she felt that the stool was so firm that it kept r olling back into her rectum, and she was unable to disimpact herself. The pain got significantly wor se. She had abdominal pain and as such she came to the emergency room at that time. She was admitte d to the hospital at that time and given enemas and bowel regimen and has had symptomatic improvement since her admission to the hospital, but she continued to have some abdominal pain as of 06/10/2018 and as such I was consulted to see her for this reason. Past Medical History: Significant for hypertension, and GERD. Past Surgical History: Hysterectomy, appendectomy. Allergies: NO KNOWN DRUG ALLERGIES. Home Medications: Include Prinivil, Zantac, and Tylenol. Family History: Heart disease and cancer in her father. Her mother and brother had heart disease. Social History: She has a former smoking history. No alcohol or recreational drug use. Review of Systems: A 10-point review of systems other than HPI, denies. Physical Examination: Vital Signs: At the time of my examination, she has had a BMI of 39.9, blood pressure was 170/73, pu lse is 56, respiratory rate 18, temperature 97.7. General: She is awake, alert, and oriented. Psychiatric: She is appropriately conversive. HEENT: She is normocephalic. Sclerae icteric. Mucous membranes are moist. Oropharynx clear. Neck: Supple. No JVD. Chest: Normal expansion and excursion. Cardiovascular: Regular rhythm. Pulmonary: Clear to auscultation bilaterally. Abdomen: Soft, nontender, nondistended. No rebound. No guarding. No focal peritonitis. No palpab le masses. Extremities: No clubbing, cyanosis, or edema. Skin: Warm and dry. Laboratory Data: Reveals a white blood count of 13.8, hemoglobin is 14.3, hematocrit 44.0, platelet count is 248. Her sodium 141, potassium 3.8, chloride 109, carbon dioxide 24, BUN 10, creatinine 0.9 , glucose is 123, calcium 8.3, phosphorus 2.6, magnesium 2.3, total bilirubin 0.7, AST 19, ALT 13, al kaline phosphatase is 60, lipase is 130 on admission. UA is essentially negative down the line. She has had several imaging studies performed and a barium enema. These included a CT abdomen and pelvi s, which was officially read as mild to moderate stool volume in the distal rectum with overall stool volume in the colon minimal. No acute GI process identified. No acute /CORRECTIONAL OFFICER CAPTAIN process. Isodense ma ss and pyelonephritis are not excluded on stone protocol technique. A chest x-ray was officially santana d as no acute cardiopulmonary process. The patient additionally had a therapeutic barium enema, whic h she was unable to tolerate completely, which showed an incomplete Gastrografin enema. Assessment And Plan: This is a 67-year-old female who came in with stool impaction of the distal rec antonino. 1.IV fluid hydration. 2.The patient has continued to have bowel function now and has resumption of bowel movements, had 4 bowel movements in the last several hours and has symptomatic improvement and no more abdominal pain. No nausea, no vomiting. Is tolerating liquids. As such I find that she has likely passed this dis impacted segment of stool. I recommend continue to advance her diet. Continue hydration with Gatora de and electrolyte solutions and Metamucil and Colace for stool softener as an outpatient. I also re commend she follow up with Dr. Hernandez possibly for repeat colonoscopy and assessment of her GI tract. I have explained risks, benefits, and alternatives of the above stated plan. The patient agrees to proceed as indicated. TOMA/[place] Voice ID: [id number] Report ID: [id number]
== END 2018-06-11 09:45 | disposition home or self-care (01) ==
LOC: ER 14:39 → ERHOLD 17:56 → 2ND 20:24
PROVIDERS: ADMIT Family Medicine; ATTEND Hospitalist
DX: K56.41 Fecal impaction (principal); I10 Essential (primary) hypertension; J44.9 Chronic obstructive pulmonary disease, unspecified; K21.9 Gastro-esophageal reflux disease without esophagitis; Z87.891 Personal history of nicotine dependence
CPT/HCPCS: 36415 ×2; 71045; 74176; 74283; 76377; 80048; 80053 ×2; 80076; 81003; 83690; 83735 ×2; 83880; 84100; 84484; 85025 ×3; 85610; 87086; 87088; 93005; 99285; G0378 ×2; J0744; J2405; J3010; J7030

== ENCOUNTER 2020-09-12 14:13 | Emergency (ER) | payer OTHER ==
[2020-09-12 17:29] LABS: Absolute Lymphocytes (CBC) 3.3 K/uL (0.7-4.9); Basophils % 0.7 % (0-1.3); Hematocrit 44.6 % (36.0-45.0); Lymphocytes % 28.5 % (15.3-44.8); MPV 9.2 fL (7.6-11.3); RBC Red Blood Cell Count 5.18 M/uL (3.86-4.86)
[2020-09-12 17:36] LABS: Protime INR 0.93
[2020-09-12 17:59] LABS: ALT/SGPT 9 U/L (12-78); Albumin 3.9 g/dL (3.4-5.0); Alkaline Phosphatase 76 U/L (45-117); BUN Blood Urea Nitrogen 16 mg/dL (7-18); Bicarbonate 27 mmol/L (21-32); Bilirubin Direct < 0.1 mg/dL (0-0.2); Bilirubin Total 0.3 mg/dL (0.2-1.0); Glucose Level 88 mg/dL (74-106); Protein, Total 7.6 g/dL (6.4-8.2); Sodium Level 143 mmol/L (136-145); Troponin (Emerg Dept Use Only) < 0.02 ng/mL (0.0-0.045)
[2020-09-12 18:00] LABS: NT PRO-BNP 185 pg/mL (<125)
[2020-09-12 18:01] LABS: AST/SGOT 17 U/L (15-37); Magnesium 2.1 mg/dL (1.8-2.4); Potassium 4.2 mmol/L (3.5-5.1)
--- NOTE | 2020-09-12 18:50 | ER ---
Nurse's Notes [facility] Name: Kaitlynn Mosley Age: 69 yrs Sex: Female : 1950 Arrival Date: 09/12/2020 Time: 14:16 Bed 5 Private MD: Diagnosis: Essential (primary) hypertension Presentation: 09/12 14:32 Chief complaint: Patient states: Chest pain for a while now, maybe a few months, comes ca1 and goes. For the past week or 2, has gotten worse, I raise my arms up, my chest hurts. When I lay on my R side it hurts. I feel like at times my heart skips beats, then have palpitations. My BP is also high, has been on the SBP 200, DBP 100. Went to [facility] today and SBP at 219 and they sent me here. I also have COPD and my lungs hurt right now too. Coronavirus screen: Client denies travel out of the [place] in the last 14 days. At this time, the client does not indicate any symptoms associated with coronavirus-19. Ebola Screen: Patient negative for fever greater than or equal to 101.5 degrees Fahrenheit, and additional compatible Ebola Virus Disease symptoms Patient denies exposure to infectious person. Patient denies travel to an Ebola-affected area in the 21 days before illness onset. No symptoms or risks identified at this time. Initial Sepsis Screen: Does the patient meet any 2 criteria? No. Patient's initial sepsis screen is negative. Does the patient have a suspected source of infection? No. Patient's initial sepsis screen is negative. Risk Assessment: Do you want to hurt yourself or someone else? Patient reports no desire to harm self or others. Onset of symptoms was September 12, 2020. 14:32 Method Of Arrival: Ambulatory ca1 14:32 Acuity: PRIYA 2 ca1 Historical: - Allergies: 14:38 No Known Allergies; ca1 - Home Meds: 16:45 Lisinopril Oral [Active]; aa5 16:45 Unknown diuretic [Active]; aa5 - PMHx: 14:38 COPD; Hypertension; ca1 - PSHx: 14:38 Hysterectomy; Appendectomy; Tonsillectomy; ca1 - Immunization history:: Flu vaccine is up to date. - Social history:: Smoking status: Patient/guardian denies using tobacco, the patient reports quitting approximately 5 years ago. - Family history:: not pertinent. Screenin:30 Abuse screen: Denies threats or abuse. Nutritional screening: No deficits noted. aa5 Tuberculosis screening: No symptoms or risk factors identified. Fall Risk None identified. Assessment: 16:30 General: Appears comfortable, Behavior is calm, cooperative. Pain: Complains of pain in aa5 chest Pain does not radiate. Pain currently is 6 out of 10 on a pain scale. Is intermittent. Neuro: Level of Consciousness is awake, alert, obeys commands, Oriented to person, place, time, situation. Cardiovascular: Reports "I start having palpitations when I walk around and I can feel my blood pressure go up but if I am just sitting down my blood pressure is fine and I feel okay". Heart tones S1 S2 present Rhythm is regular. Respiratory: Reports Baseline SOB and cough, hx of COPD Airway is patent Respiratory effort is even, unlabored, Respiratory pattern is regular, symmetrical, Breath sounds are clear bilaterally. GI: Abdomen is round. : No signs and/or symptoms were reported regarding the genitourinary system. EENT: No signs and/or symptoms were reported regarding the EENT system. Derm: Skin is pink, warm \\T\\ dry. Musculoskeletal: Range of motion: intact in all extremities. 17:30 Reassessment: Patient is alert, oriented x 3, equal unlabored respirations, skin aa5 warm/dry/pink. 17:30 General: Appears comfortable. aa5 19:00 Reassessment: Patient is alert, oriented x 3, equal unlabored respirations, skin aa5 warm/dry/pink. Vital Signs: 14:32 BP 203 / 105; Pulse 73; Resp 16 S; Temp 98.1; Pulse Ox 100% on R/A; Weight 90.72 kg ca1 (R); Height 5 ft. 7 in. (170.18 cm) (R); Pain 6/10; 17:09 BP 154 / 90; Pulse 69; Resp 18 S; Pulse Ox 99% on R/A; aa5 17:30 BP 156 / 93; Pulse 71; Resp 16 S; Pulse Ox 97% on R/A; aa5 18:17 BP 138 / 83; Pulse 73; Resp 16 S; Pulse Ox 97% on R/A; aa5 19:00 BP 139 / 82; Pulse 68; Resp 16 S; Pulse Ox 98% on R/A; aa5 14:32 Body Mass Index 31.32 (90.72 kg, 170.18 cm) ca1 ED Course: 14:16 Patient arrived in ED. as 14:32 Arm band placed on right wrist. ca1 14:37 Triage completed. ca1 16:21 Susan Matt, RN is Primary Nurse. aa5 16:32 Pieor Whalen MD is Attending Physician. ma2 17:11 Patient has correct armband on for positive identification. Placed in gown. Bed in low mh5 position. Call light in reach. Side rails up X 1. Warm blanket given. Pillow given. monitor tech on. Pulse ox on. NIBP on. 17:11 EKG done, by ED staff, reviewed by Piero Whalen MD. 5 17:13 Initial lab(s) drawn, by me, sent to lab. Inserted saline lock: 20 gauge in right aa5 antecubital area, using aseptic technique. Blood collected. 18:48 Heri Ramos MD is Referral Physician. ma2 19:10 No provider procedures requiring assistance completed. IV discontinued, intact, rr5 bleeding controlled, No redness/swelling at site. Pressure dressing applied. Patient maintains SpO2 saturation greater than 95% on room air. Administered Medications: No medications were administered Outcome: 18:48 Discharge ordered by . ma2 19:10 Discharged to home ambulatory. rr5 19:10 Condition: stable 19:10 Discharge instructions given to patient, Instructed on discharge instructions, follow up and referral plans. medication usage, Demonstrated understanding of instructions, follow-up care, medications, Prescriptions given X 1. 19:10 Patient left the ED. rr5 Signatures: Barby Barrett Audri, RN RN aa5 Danae Barrett 5 Piero Whalen MD MD ma2 Jaylan Antoine RN RN rr5 Starla Rodriguez RN RN ca1 Corrections: (The following items were deleted from the chart) 14:38 14:32 Acuity: PRIYA 3 ca1 ca1 18:39 16:30 Cardiovascular: Heart tones S1 S2 present Rhythm is regular aa5 aa5 18:39 16:30 Respiratory: Airway is patent Respiratory effort is even, unlabored, Respiratory aa5 pattern is regular, symmetrical, Breath sounds are clear bilaterally. aa5
--- NOTE | 2020-09-12 18:51 | EDPHYS ---
Physician Documentation [facility] Name: Kaitlynn Mosley Age: 69 yrs Sex: Female : 1950 Arrival Date: 09/12/2020 Time: 14:16 Bed 5 Private MD: ED Physician Piero Whalen HPI: 09/12 17:02 This 69 yrs old Female presents to ER via Ambulatory with complaints of Chest ma2 Pain, Palpitations. 17:02 The patient or guardian reports chest pain that is located primarily in the anterior ma2 chest wall. Onset: gradually, 1 week(s) ago. Associated signs and symptoms: Pertinent negatives: cough, dizziness, lower extremity pain, lower extremity swelling, syncope, vomiting. Severity of pain: At its worst the pain was moderate in the emergency department the pain is unchanged. patient was sent here for elevated bp 200/100, she has been having chest pain for 2 months on/off, mostly positional . Historical: - Allergies: 14:38 No Known Allergies; ca1 - Home Meds: 16:45 Lisinopril Oral [Active]; aa5 16:45 Unknown diuretic [Active]; aa5 - PMHx: 14:38 COPD; Hypertension; ca1 - PSHx: 14:38 Hysterectomy; Appendectomy; Tonsillectomy; ca1 - Immunization history:: Flu vaccine is up to date. - Social history:: Smoking status: Patient/guardian denies using tobacco, the patient reports quitting approximately 5 years ago. - Family history:: not pertinent. ROS: 17:02 Constitutional: Negative for fever, chills, and weight loss. ma2 17:02 All other systems are negative. Exam: 17:02 Constitutional: This is a well developed, well nourished patient who is awake, alert, ma2 and in no acute distress. Head/Face: Normocephalic, atraumatic. Eyes: Pupils equal round and reactive to light, extra-ocular motions intact. Lids and lashes normal. Conjunctiva and sclera are non-icteric and not injected. Cornea within normal limits. Periorbital areas with no swelling, redness, or edema. ENT: Nares patent. No nasal discharge, no septal abnormalities noted. Tympanic membranes are normal and external auditory canals are clear. Oropharynx with no redness, swelling, or masses, exudates, or evidence of obstruction, uvula midline. Mucous membranes moist. Neck: Trachea midline, no thyromegaly or masses palpated, and no cervical lymphadenopathy. Supple, full range of motion without nuchal rigidity, or vertebral point tenderness. No Meningismus. Chest/axilla: Normal chest wall appearance and motion. Nontender with no deformity. No lesions are appreciated. Cardiovascular: Regular rate and rhythm with a normal S1 and S2. No gallops, murmurs, or rubs. Normal PMI, no JVD. No pulse deficits. Respiratory: Lungs have equal breath sounds bilaterally, clear to auscultation and percussion. No rales, rhonchi or wheezes noted. No increased work of breathing, no retractions or nasal flaring. Abdomen/GI: Soft, non-tender, with normal bowel sounds. No distension or tympany. No guarding or rebound. No evidence of tenderness throughout. Back: No spinal tenderness. No costovertebral tenderness. Full range of motion. Skin: Warm, dry with normal turgor. Normal color with no rashes, no lesions, and no evidence of cellulitis. MS/ Extremity: Pulses equal, no cyanosis. Neurovascular intact. Full, normal range of motion. Neuro: Awake and alert, GCS 15, oriented to person, place, time, and situation. Cranial nerves II-XII grossly intact. Motor strength 5/5 in all extremities. Sensory grossly intact. Cerebellar exam normal. Normal gait. Psych: Awake, alert, with orientation to person, place and time. Behavior, mood, and affect are within normal limits. Vital Signs: 14:32 BP 203 / 105; Pulse 73; Resp 16 S; Temp 98.1; Pulse Ox 100% on R/A; Weight 90.72 kg ca1 (R); Height 5 ft. 7 in. (170.18 cm) (R); Pain 6/10; 17:09 BP 154 / 90; Pulse 69; Resp 18 S; Pulse Ox 99% on R/A; aa5 17:30 BP 156 / 93; Pulse 71; Resp 16 S; Pulse Ox 97% on R/A; aa5 18:17 BP 138 / 83; Pulse 73; Resp 16 S; Pulse Ox 97% on R/A; aa5 19:00 BP 139 / 82; Pulse 68; Resp 16 S; Pulse Ox 98% on R/A; aa5 14:32 Body Mass Index 31.32 (90.72 kg, 170.18 cm) ca1 MDM: 17:02 Differential diagnosis: abnormal EKG, gastroesophageal reflux disease (GERD), stable ma2 angina. 17:07 Patient medically screened. ma2 18:47 KATEY Risk Score: not applicable. Data reviewed: vital signs, nurses notes. ED course: ma2 chest pain is reproducible on exam, unchanged from baseline.. I advised her to see practice performance manager anyway . ED course: bp is 130/88. 09/12 17:02 Order name: Basic Metabolic Panel [facility] 09/12 17:02 Order name: CBC with Diff [facility] 09/12 17:02 Order name: LFT's [facility] 09/12 17:02 Order name: Magnesium [facility] 09/12 17:02 Order name: NT PRO-BNP [facility] 09/12 17:02 Order name: PT-INR [facility] 09/12 17:02 Order name: Troponin (emerg Dept Use Only) [facility] 09/12 17:35 Order name: CBC with Automated Diff; Complete Time: 17:59 [facility] 09/12 18:01 Order name: Protime (+INR); Complete Time: 18:13 [facility] 09/12 18:02 Order name: Basic Metabolic Panel; Complete Time: 18:13 [facility] 09/12 18:02 Order name: Liver (Hepatic) Function; Complete Time: 18:13 [facility] 09/12 18:02 Order name: Troponin (Emerg Dept Use Only); Complete Time: 18:13 [facility] 09/12 18:02 Order name: NT PRO-BNP; Complete Time: 18:13 ED[facility] 09/12 18:02 Order name: Magnesium; Complete Time: 18:13 [facility] 09/12 14:38 Order name: EKG; Complete Time: 17:16 ca1 09/12 14:38 Order name: EKG - Nurse/Tech; Complete Time: 14:42 ca1 09/12 17:02 Order name: XRAY Chest (1 view) [facility] 09/12 17:02 Order name: Cardiac monitoring; Complete Time: 17:12 [facility] 09/12 17:02 Order name: IV Saline Lock; Complete Time: 17:13 [facility] 09/12 17:02 Order name: Labs collected and sent; Complete Time: 17:13 [facility] 09/12 17:02 Order name: O2 Per Protocol; Complete Time: 17:13 [facility] 09/12 17:02 Order name: O2 Sat Monitoring; Complete Time: 17:13 [facility] 09/12 18:54 Order name: RAD EDMS Administered Medications: No medications were administered Disposition: 09/12/20 18:48 Discharged to Home. Impression: Essential (primary) hypertension. - Condition is Stable. - Discharge Instructions: Hypertension. - Prescriptions for Diclofenac Sodium 75 mg Oral Tablet Sustained Release - take 1 tablet by ORAL route 2 times per day; 30 tablet. - Medication Reconciliation Form, Thank You Letter, Antibiotic Education, Prescription Opioid Use form. - Follow up: Heri Ramos; When: Tomorrow; Reason: Continuance of care. Signatures: Dispatcher [employer] Susan Day RN RN aa5 Piero Whalen MD MD ma2 Jaylan Antoine RN RN rr5 Starla Rodriguez RN RN ca1 Corrections: (The following items were deleted from the chart) 19:07 17:02 Urine Dipstick-Ancillary ordered. [facility] aa5 19:10 18:48 09/12/2020 18:48 Discharged to Home. Impression: Essential (primary) rr5 hypertension. Condition is Stable. Forms are Medication Reconciliation Form, Thank You Letter, Antibiotic Education, Prescription Opioid Use. Follow up: Heri Ramos; When: Tomorrow; Reason: Continuance of care. [facility]
--- NOTE | 2020-09-12 18:52 | RAD REPORT ---
EXAM DESCRIPTION: RAD - Chest Single View - 09/12/2020 6:27 pm CLINICAL HISTORY: r/o pneumoniachest pain, shortness of breath COMPARISON: May 2018 TECHNIQUE: AP portable chest image was obtained 09/12/2020 6:27 pm . FINDINGS: Lung volumes are low. Portable technique and overlying breast soft tissue accentuates the lung bases and obscures each costophrenic angle. Posterior gutter disease could be obscured. Mid and upper lung fernández are clear. No significant failure or volume overload. Heart and vasculature are nor mal. No measurable pleural effusion and no pneumothorax. No acute bony abnormality seen. No acute aor tic findings suspected. IMPRESSION: Limited portable study without acute cardiopulmonary finding. No significant change from comparison.
--- NOTE | 2020-09-13 12:56 | EKG ---
Test Date: 2020-09-12 Test Time: 14:41:09 Online Activist: AMEENA MEASUREMENT RESULTS: Intervals: Rate: 65 IN: 144 QRSD: 84 QT: 392 QTc: 407 [place]: P: 69 IN: 144 QRS: 74 T: 33 INTERPRETIVE STATEMENTS: Sinus rhythm with premature atrial complexes ST abnormality, possible digitalis effect Abnormal ECG Compared to ECG 06/09/2018 17:13:20 No significant changes Electronically Signed On 09-13-20 12:53:35 DIRECTOR OF IN SERVICE EDUCATION by Heri Ramos
== END 2020-09-12 19:10 | disposition home or self-care (01) ==
LOC: ER 14:13
DX: I10 Essential (primary) hypertension (principal)
CPT/HCPCS: 36415; 71045; 80048; 80076; 83735; 83880; 84484; 85025; 85610; 93005; 99285

== ENCOUNTER 2020-10-06 09:58 | Day surgery (SDC) | payer OTHER ==
[2020-10-03 14:48] LABS: Basophils % 0.7 % (0-1.3); Hematocrit 43.9 % (36.0-45.0); Lymphocytes % 32.1 % (15.3-44.8); MPV 9.6 fL (7.6-11.3)
[2020-10-03 14:51] LABS: Protime INR 0.98
[2020-10-03 15:01] LABS: Potassium 4.1 mmol/L (3.5-5.1)
[~2020-10-06 09:58] MED LIST: HEPA 1000U/500MLS 1,000 UNIT/500 ML BAG IV ONE
[2020-10-06] MEDS ORDERED: NA CHLORIDE 0.9% 500 ML ONE (10:38)
[2020-10-06 10:53] VITALS: TEMP 97.6
[2020-10-06] MEDS ORDERED: NA CHLORIDE 0.9% 100 ML IV ONE (12:50)
[2020-10-06] MEDS ORDERED: HEPARIN 5000 UNIT/ML 1 ML VIAL ONE (13:20)
[2020-10-06] MEDS ORDERED: ATROPINE SULF 1 MG/10 ML SYR IV ONE (13:21)
[2020-10-06] MEDS ORDERED: NITROGLYCERIN 100 MCG/ML SYR (for cath lab use only) IV ONE (13:21)
[2020-10-06] MEDS ORDERED: FENTANYL CITR 100 MCG/2 ML ONE (13:21)
[2020-10-06] MEDS ORDERED: VERAPAMIL HCL 10 MG/4 ML VIAL IV ONE (13:21)
[2020-10-06] MEDS ORDERED: NITROGLYCERIN/D5W 25 MG/250 ML BTL IV ONE (13:21)
[2020-10-06] MEDS ORDERED: MIDAZOLAM HCL 2 MG/2 ML INJ ONE (13:21)
[2020-10-06] MEDS ORDERED: HEPARIN 10,000 UNIT/10 ML VIAL IV ONE (13:21)
[2020-10-06] MEDS ORDERED: LIDOCAINE 1% MPF 5 ML VIAL ONE (13:38)
[2020-10-06] MEDS ORDERED: CLOPIDOGREL 75 MG TABLET ONE (13:50)
[2020-10-06] MEDS ORDERED: ASPIRIN 325 MG TAB ONE (13:50)
[2020-10-06] MEDS ORDERED: HEPA 1000U/500MLS 1,000 UNIT/500 ML BAG IV ONE (14:03)
[2020-10-06 14:06] LABS: Blood Gas Oxyhemoglobin 79.1 % (94-97); Blood O2 Saturation 80.5 % (92-98.5)
[2020-10-06] MEDS ORDERED: NITROGLYCERIN 0.4 MG/TAB SL ONE (14:21)
--- NOTE | 2020-10-06 15:48 | OP ---
Date of Procedure: 10/06/2020 Surgeon: JOSÉ LUIS MONTEIRO Procedures Performed: 1.Selective coronary angiogram. 2.Right heart catheterization. 3.PCI of severe mid RCA stenosis using a 4.0 x 60 mm Synergy drug-eluting stent, post dilated at the lesion site using 4.5 x 8 mm NC balloon. Indications: 1.Unstable angina. 2.Shortness of breath. Access: 1.Right radial artery 6-Niuean closed with TR band. 2.Right IJ 7-Niuean closed with minimal pressure. Complications: None. Bleeding: Less than 5 mL. Description Of Procedure: After risks, benefits and alternatives were explained, the patient agreed to proceed and signed informed consent. The patient was brought into the cardiac catheterization lab oratory, prepped and draped in usual sterile fashion. Then, we accessed right radial artery. Using a pediatric micropuncture sheath, we placed a 6-Niuean slender sheath and accessed the right IJ under the ultrasound guidance using micropuncture kit and placed 7-Niuean sheaths. Then, I took a Eglon 7- Niuean catheter through the IJ, accessed into the right atrium, recorded the waveform and the pressur e in the RV with recorded waveform pressure and then to the with full pressure. I then re moved the Eglon and then I proceeded with coronary angiogram using a 5-Niuean Eden catheter. That wa s sent over a J-wire into the aortic root, engaged left main, the right coronary artery and took brigitte dard views. Decision to intervene on the severe mid RCA was made. Intervention Details: We gave systemic heparin to assure ACT level above 250 throughout the procedur e. We gave aspirin. Then, we took a 6-Niuean JR4 guide into the aortic root, engaged the right coronary artery and took short Run-Through wire into the RCA across the stenosis and then plac ed in the distal artery and then took a 3.0 x 12 mm Compliant balloon across the lesion and pre-dilat ed it to high pressure, which gives a size of 3.5 and then took a 4.0 x 60 mm Synergy drug -eluting stent across the stenosis, deployed successfully and then we took a 4.5 x 8 mm NC balloon at the site of the lesion and post dilated to 4.5 mm. Final pictures showed very good results with 0% residual stenosis. Then, we removed the catheter and the sheath TR band with good hemosta sis. Venous sheath was removed and manual pressure with adequate hemostasis. Findings: 1.Left main is large, normal. 2.LAD; very tortuous, large size vessel with luminal irregularities throughout the vessel. 3.Left circumflex; tortuous with luminal irregularities. 4.RCA; large dominant with mid 95% stenosis, status post successful PCI as above. Right Heart Catheterization Results: RA pressure was 9. RV pressure was 36/7 with a mean of 11, PA was 29/18 with a mean of 22. Pulmonary wedge pressure was 7. Cardiac output was 7.4 L/minute. Card iac index was 3.0. Conclusions: Severe mid RCA coronary artery disease, status post successful PCI as outlined above. Plan: Continue Plavix 75 mg daily, aspirin 81 mg daily daily. Follow up with me in the o ffice in 4 weeks. SR/MODL Voice ID: [id number] Report ID: [id number]
[2020-10-06 16:32] VITALS: O2SAT 98
[2020-10-06 17:07] VITALS: BP 142/85
== END 2020-10-06 17:00 | disposition home or self-care (01) ==
LOC: CCL 09:58
PROVIDERS: ATTEND Internal Medicine
DX: I25.110 Atherosclerotic heart disease of native coronary artery with unstable angina pectoris (principal); I70.212 Atherosclerosis of native arteries of extremities with intermittent claudication, left leg; I10 Essential (primary) hypertension; R00.2 Palpitations; E78.5 Hyperlipidemia, unspecified; Z87.891 Personal history of nicotine dependence; Z20.822 Contact with and (suspected) exposure to COVID-19; Z82.49 Family history of ischemic heart disease and other diseases of the circulatory system
CPT/HCPCS: 85025; 80048; 36415; 85610; 85347 ×2; 85730; 93456; 82805; U0002; C1893; C1725; C9600; J1644 ×3; J2250; J3010; J7040

== ENCOUNTER 2020-11-03 10:14 | Day surgery (SDC) | payer OTHER ==
[2020-10-27 13:56] LABS: Absolute Lymphocytes (CBC) 2.7 K/uL (0.7-4.9); Basophils % 0.9 % (0-1.3); Hematocrit 43.2 % (36.0-45.0); Lymphocytes % 26.2 % (15.3-44.8); MPV 8.6 fL (7.6-11.3); RBC Red Blood Cell Count 5.05 M/uL (3.86-4.86)
[2020-10-27 14:11] LABS: Protime INR 0.99
[2020-10-27 16:46] LABS: Potassium 4.2 mmol/L (3.5-5.1)
[2020-11-03] MEDS ORDERED: HEPA 1000U/500MLS 2,000 UNIT/1,000 ML BAG IV ONE (10:42)
[2020-11-03] MEDS ORDERED: LIDOCAINE 1% 20 ML MDV ONE (10:43)
[2020-11-03] MEDS ORDERED: NA CHLORIDE 0.9% 500 ML ONE (10:55)
[2020-11-03] MEDS ORDERED: CLOPIDOGREL 75 MG TABLET ONE (11:37)
[2020-11-03] MEDS ORDERED: HEPARIN 5000 UNIT/ML 1 ML VIAL ONE (11:37)
[2020-11-03] MEDS ORDERED: MIDAZOLAM HCL 2 MG/2 ML INJ ONE (11:37)
[2020-11-03] MEDS ORDERED: FENTANYL CITR 100 MCG/2 ML ONE (11:38)
[2020-11-03] MEDS ORDERED: ATROPINE SULF 1 MG/10 ML SYR IV ONE (11:39)
[2020-11-03] MEDS ORDERED: NITROGLYCERIN/D5W 25 MG/250 ML BTL IV ONE (11:39)
[2020-11-03] MEDS ORDERED: NITROGLYCERIN 100 MCG/ML SYR (for cath lab use only) IV ONE (11:39)
[2020-11-03] MEDS ORDERED: VERAPAMIL HCL 10 MG/4 ML VIAL IV ONE (11:39)
[2020-11-03] MEDS ORDERED: REGADENOSON 0.4 MG/5 ML SYR IV ONE (13:17)
--- NOTE | 2020-11-03 13:49 | OP ---
Date of Procedure: 11/03/2020 Surgeon: JOSÉ LUIS MONTEIRO Procedures Performed: 1.Selective coronary angiogram. 2.FFR of mid LAD, moderate stenosis which was not significant 0.84. Indication: Chest pain and known moderate coronary artery disease in the mid LAD. Access: Right radial artery 6-Emirati closed with TR band. Complications: None. Bleeding: Less than 10 mL. Description Of Procedure: After risks and benefits were explained, the patient agreed to the procedu re and signed informed consent. We brought the patient to cardiac catheterization laboratory, preppe d and draped in usual sterile fashion. A pediatric micropuncture kit was used to access right radial artery and placed a 6-Emirati slender sheath, took a [place] catheter into the aortic root, engaged the left main and the right coronary artery, took standard views and then we gave a systemic heparin to assure ACT level above 250 and took EBU 3.5 into the aortic root and exchanged Milford catheter and eng aged left main. Then, we took a Comet wire into the aortic root and equalized and then took the wire through the LAD across the mid-LAD stenosis. Lexiscan was given. FFR was recorded and the lowest v alue was 0.84. I removed the wire, took final angiogram, and removed the catheter and the sheath, an d placed TR band. Findings: 1.Left main is normal. 2.LAD; mid 50% with negative FFR value of 0.84, which makes the insignificant lesion. 3.Left circumflex is normal. 4.RCA was injected due to persistent chest pain that the patient is having, and the stent is patent. No significant disease. Conclusion: Moderate LAD disease, negative FFR. Plan: Medical management. Discharge home once criteria are met. SR/MODL Voice ID: [id number] Report ID: [id number]
[2020-11-03 15:30] VITALS: TEMP 97.2
[2020-11-03 16:45] VITALS: BP 116/67; O2SAT 98
== END 2020-11-03 16:30 | disposition home or self-care (01) ==
LOC: CCL 10:14
PROVIDERS: ATTEND Internal Medicine
DX: I25.10 Atherosclerotic heart disease of native coronary artery without angina pectoris (principal); I70.212 Atherosclerosis of native arteries of extremities with intermittent claudication, left leg; I10 Essential (primary) hypertension; E78.5 Hyperlipidemia, unspecified; J44.9 Chronic obstructive pulmonary disease, unspecified; Z95.5 Presence of coronary angioplasty implant and graft; Z87.891 Personal history of nicotine dependence; Z20.822 Contact with and (suspected) exposure to COVID-19; Z82.49 Family history of ischemic heart disease and other diseases of the circulatory system
CPT/HCPCS: 93005; 85025; 80048; 36415; 85610; 85730; 93571; U0002; C1893; J1644 ×2; J2250; J3010; J2785; J7040; 93454

== ENCOUNTER 2022-12-17 14:57 | Emergency (ER) | payer OTHER ==
[2022-12-17] MEDS ORDERED: METHYLPREDNISOLONE 125 MG INJ ONE (15:17)
[2022-12-17] MEDS ORDERED: CYCLOBENZAPRINE 10 MG TAB ONE (15:17)
[2022-12-17] MEDS ORDERED: KETOROLAC 30 MG/ML INJ ONE (15:17)
--- NOTE | 2022-12-17 17:28 | RAD REPORT ---
EXAM DESCRIPTION: CT - C Spine Wo Con - 12/17/2022 4:43 pm CLINICAL HISTORY: Pain COMPARISON: None. TECHNIQUE: Axial thin cut CT images of the cervical spine were obtained without IV contrast. Multipl devendra reconstruction images generated and reviewed. All CT scans are performed using dose optimization technique as appropriate and may include automated exposure control or mA/KV adjustment according to patient size. FINDINGS: Cervical vertebral body height are preserved. Dextroconvex scoliosis of the lower cervical spine, may be positional or secondary to muscle spasm. No high-grade bony canal stenosis. Multilevel disc height loss, with uncovertebral joint and facet arthropathy contributing to moderate neural for aminal narrowing on the right at C3-4 and C6-7, and on the left at C4-5 and C5-6. No fracture or acute bony abnormality. Up to moderate degenerative changes of the facet articulations. No paraspinal mass or hematoma. IMPRESSION: No acute osseus abnormality. Dextroconvex scoliosis of the lower cervical spine, may be positional or secondary to muscle spasm. Multilevel degenerative changes as above.
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
[2022-12-17 18:45] VITALS: BP 149/76; TEMP 98.5; O2SAT 98
== END 2022-12-17 18:14 | disposition home or self-care (01) ==
LOC: ER 14:57
DX: M54.12 Radiculopathy, cervical region (principal); F17.210 Nicotine dependence, cigarettes, uncomplicated
CPT/HCPCS: 72125; 96372; 99284; J2930

== ENCOUNTER 2024-09-23 17:28 | Observation (INO) | payer OTHER ==
--- OUTSIDE RECORDS SUMMARY | 2024-09-23 17:31 | XMS REPORT | Continuity of Care Document ---
Author Name Unknown Address [address] [place] [address] thconnect Address [address] [place] [address] [address] [place] [address] Care Team Providers Care Cutter Aluminum Sheet Name Role Phone [email or web address] Attending Clinician Unavaila ble [email or web address] Admitting Clinician Unavaila ble Encounters Start Date/Time End Date/Time Encounter Type Admission Type Attending Clinicians Care Facility Care Department Encounter ID Source 2023-06-12 00:00:00 2023-06-12 00:00:00 Outpatient [email or web address] [facility] [id number] [facility]
[2024-09-23] MEDS ORDERED: NA CHLORIDE 0.9% 1,000 ML ONE (17:39)
[2024-09-23] MEDS ORDERED: MORPHINE 2 MG/ML SYR ONE (17:39)
[2024-09-23 17:49] LABS: Absolute Basophils 0.1 K/uL (0-0.5); Absolute Eosinophils 0.2 K/uL (0-0.5); Absolute Lymphocytes (CBC) 3.4 K/uL (0.7-4.9); Absolute Monocytes 1.2 K/uL (0.1-1.3); Absolute Neutrophil 7.5 K/uL (1.8-8.0); Basophils % 0.5 % (0-1.3); Eosinophils % 1.5 % (0-4.4); Lymphocytes % 27.6 % (15.3-44.8); MCH 29.8 pg (27.0-35.0); MCHC 33.4 g/dL (32.0-36.0); MCV 89.2 fL (80-100); MPV 8.7 fL (7.6-11.3); Monocytes % 9.9 % (3.3-12.3); Neutrophils % 60.5 % (41.7-73.7); Platelets 268 thou/uL (152-406); RBC Red Blood Cell Count 5.38 M/uL (3.86-4.86)
[2024-09-23 17:58] LABS: PT Prothrombin Time 11.7 SECONDS (9.4-12.5); Protime INR 1.12
[2024-09-23 18:09] LABS: AST/SGOT 16 U/L (15-37); Albumin 3.8 g/dL (3.4-5.0); Alkaline Phosphatase 98 U/L (45-117); Anion Gap 11.3 mEq/L (5.0-15.0); BUN Blood Urea Nitrogen 19 mg/dL (7-18); Bicarbonate 23 mEq/L (21-32); Bilirubin Direct 0.2 mg/dL (0-0.2); Bilirubin Indirect, Calculated 0.5 mg/dL (0.2-0.8); Bilirubin Total 0.7 mg/dL (0.2-1.0); Globulin 3.8 g/dL (2.3-3.5); Glomerular Filtration Rate 39 ml/min (=/>90); Glucose Level 109 mg/dL (74-106); Lipase 54 U/L (13-75); Magnesium 2.2 mg/dL (1.6-2.4); NT PRO-BNP 266 pg/mL (<125); Potassium 4.3 mEq/L (3.5-5.1); Protein, Total 7.6 g/dL (6.4-8.2); Sodium Level 137 mEq/L (136-145)
[2024-09-23 18:11] LABS: ALT/SGPT < 14 U/L (13-56)
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
[2024-09-23] MEDS ORDERED: ACETYLCYST 6,000 MG/30 ML VIAL ONE (19:24)
[2024-09-23] MEDS ORDERED: ONDANSETRON 4 MG/2 ML VIAL ONE (19:25)
[2024-09-23] MEDS ORDERED: MORPHINE 4 MG/ML SYR ONE (19:25)
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
[2024-09-23 21:04] LABS: Sqamous Epithelial <5 /HPF (None Seen); Urine Bacteria None Seen /HPF (<20); Urine Bilirubin NEGATIVE (Negative); Urine Blood Negative (Negative); Urine Clarity Clear (Clear); Urine Color Colorless (Yellow); Urine Culture Reflex Order NOT NEEDED; Urine Glucose NEGATIVE (Negative); Urine Ketones 1+ (Negative); Urine Microscopic Reflex YN ORDER UMIC; Urine Mucus Slight /HPF (None Seen); Urine Nitrite NEGATIVE (Negative); Urine Protein NEGATIVE (Negative); Urine RBC <5 /HPF (None Seen); Urine Urobilinogen Normal (Normal); Urine WBC <5 /HPF (<5); Urine pH 5.5 (5.0-7.0)
[2024-09-23 21:05] LABS: Specific Gravity > 1.030 (1.005-1.030)
[2024-09-23] MEDS ORDERED: ACETAMINOPHEN 500 MG TAB PO PRN (23:04)
[2024-09-23] MEDS ORDERED: ONDANSETRON 4 MG/2 ML VIAL IV PRN (23:04)
[2024-09-23] MEDS: FAMOTIDINE 20 MG/2 ML VIAL IV SCH (23:25)
[2024-09-23] MEDS: MORPHINE 4 MG/ML SYR IV PRN (23:28)
[2024-09-24 00:08] VITALS: BMI 34.9
[2024-09-24] MEDS: IPRATROPIUM BROM 0.5MG/2.5ML NEB SCH (07:39)
[2024-09-24] MEDS: ALBUTEROL 2.5 MG/3 ML NEB SOL NEB SCH (07:40)
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
[2024-09-24 07:55] LABS: Absolute Eosinophils 0.2 K/uL (0-0.5); Absolute Lymphocytes (CBC) 2.5 K/uL (0.7-4.9); Absolute Monocytes 1.2 K/uL (0.1-1.3); Basophils % 0.5 % (0-1.3); Eosinophils % 2.2 % (0-4.4); Hematocrit 45.1 % (36.0-45.0); Hemoglobin 14.7 g/dL (12.0-15.0); Lymphocytes % 25.5 % (15.3-44.8); MCH 29.5 pg (27.0-35.0); MCHC 32.5 g/dL (32.0-36.0); MCV 90.7 fL (80-100); MPV 8.4 fL (7.6-11.3); Monocytes % 11.8 % (3.3-12.3); Nucleated Red Blood Cells % 0.1 % (0-0); Platelets 225 thou/uL (152-406); RBC Red Blood Cell Count 4.98 M/uL (3.86-4.86); Red Cell Distribution Width 14.9 % (12.1-15.2)
[2024-09-24] MEDS ORDERED: PNEUMOCOCCAL VACCINE 0.5 ML IMVAC ONE (08:00)
[2024-09-24 08:02] LABS: Anion Gap 8.4 mEq/L (5.0-15.0); Potassium 4.4 mEq/L (3.5-5.1)
[2024-09-24 10:42] VITALS: O2SAT 95
[2024-09-24 13:06] VITALS: BP 116/51; TEMP 97.4
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
== END 2024-09-24 14:45 | disposition home or self-care (01) ==
LOC: ER 17:28 → ERHOLD 19:34 → 4TH 22:02
PROVIDERS: ADMIT Internal Medicine; ATTEND Internal Medicine
DX: S22.20XA Unspecified fracture of sternum, initial encounter for closed fracture (principal); S20.214A Contusion of middle front wall of thorax, initial encounter; V43.52XA Car driver injured in collision with other type car in traffic accident, initial encounter; Y93.89 Activity, other specified; Y92.410 Unspecified street and highway as the place of occurrence of the external cause; J44.9 Chronic obstructive pulmonary disease, unspecified; N17.9 Acute kidney failure, unspecified; E27.9 Disorder of adrenal gland, unspecified
CPT/HCPCS: 96361; 93005 ×2; 85025 ×2; 81001; 80048 ×2; 36415; 83735; 85610; 80076; 84484 ×2; 83690; 83880; 70450; 72125; 71260; 74177; 71045; 71046; 94010 ×2; 94640; 96375; 96374; 99285; Q9967; J7608; J7613 ×2; J7644 ×2; J2270; J2405; J7030; G0378